=== PATIENT | male | born 1940 | race Caucasian/White ===

== ENCOUNTER 2019-02-11 07:15 | Outpatient (CLI) | payer OTHER ==
[~2019-02-11 07:15] MED LIST: ELIQUIS5 MG; FOLIC ACID0.4 MG; GABAPENTIN600 MG; LIPITOR40 MG; LISINOPRIL-HCT1 EAC1
== END 2019-02-11 07:17 | disposition home or self-care (01) ==
LOC: NUCLEAR 07:15
DX: I48.2 Chronic atrial fibrillation (principal); I20.8 Other forms of angina pectoris
CPT/HCPCS: 78452; 93017; A9500; J0153

== ENCOUNTER 2019-02-13 11:06 | Emergency (ER) | payer OTHER ==
[~2019-02-13] VITALS: Ht 170.2 cm; Wt 80.7 kg
[2019-02-13] MEDS ORDERED: FLECTOR1 EACH TOP (15:36)
== END 2019-02-13 16:18 | disposition home or self-care (01) ==
LOC: ER 11:06
DX: S20.211A Contusion of right front wall of thorax, initial encounter (principal); W18.09XA Striking against other object with subsequent fall, initial encounter; Y93.89 Activity, other specified; Y92.89 Other specified places as the place of occurrence of the external cause; Y99.8 Other external cause status

== ENCOUNTER 2019-06-05 10:02 | Outpatient (CLI) | payer OTHER ==
[~2019-06-05] VITALS: Ht 152.4 cm; Wt 80.7 kg
[~2019-06-05 10:02] MED LIST changes: +FLECTOR1 EACH TOP
== END 2019-06-05 11:15 | disposition home or self-care (01) ==
LOC: OFIC 805 10:02
DX: J31.0 Chronic rhinitis (principal); H90.3 Sensorineural hearing loss, bilateral

== ENCOUNTER 2019-06-19 08:20 | Outpatient (CLI) | payer OTHER ==
[~2019-06-19] VITALS: Ht 152.4 cm; Wt 79.4 kg
== END 2019-06-19 09:00 | disposition home or self-care (01) ==
LOC: OFIC 805 08:20
DX: H90.3 Sensorineural hearing loss, bilateral (principal); J30.89 Other allergic rhinitis; J31.0 Chronic rhinitis

== ENCOUNTER → 2020-02-16 | Outpatient (CLI) | payer OTHER | END | disposition home or self-care (01) | LOC: OFIC 805 10:42 | PROVIDERS: ATTEND Otolaryngology | DX: J31.0 Chronic rhinitis (principal); J30.89 Other allergic rhinitis; H90.3 Sensorineural hearing loss, bilateral ==

== ENCOUNTER 2020-02-18 14:37 | Outpatient (CLI) | payer OTHER | END 2020-02-18 15:00 | disposition home or self-care (01) | LOC: OFIC 805 14:37 | PROVIDERS: ATTEND Otolaryngology | DX: H73.92 Unspecified disorder of tympanic membrane, left ear (principal); H60.8X2 Other otitis externa, left ear; H90.42 Sensorineural hearing loss, unilateral, left ear, with unrestricted hearing on the contralateral side; H61.22 Impacted cerumen, left ear ==

== ENCOUNTER 2020-02-29 09:37 | Outpatient (CLI) | payer OTHER ==
[2020-02-29] MEDS ORDERED: OFLOXACIN5 ML OTIC (10:17)
[2020-02-29] MEDS ORDERED: CIPRODEX OTIC7.5 ML OT (10:18)
== END 2020-02-29 16:33 | disposition home or self-care (01) ==
LOC: OFIC 805 09:37
PROVIDERS: ATTEND Otolaryngology
DX: H91.8X2 Other specified hearing loss, left ear (principal); H73.892 Other specified disorders of tympanic membrane, left ear; H60.8X2 Other otitis externa, left ear; H61.22 Impacted cerumen, left ear

== ENCOUNTER 2020-03-15 10:10 | Outpatient (CLI) | payer OTHER ==
[~2020-03-15 10:10] MED LIST changes: +CIPRODEX OTIC7.5 ML OT; +OFLOXACIN5 ML OTIC
[2020-03-15] MEDS ORDERED: DYMISTA NASAL S23 GM NASAL (10:22)
[2020-03-15] MEDS ORDERED: PROTONIX40 M1 PO (10:23)
[2020-03-15] MEDS ORDERED: PEPCID AC20 MG PO (10:23)
[2020-03-15] MEDS ORDERED: SINGULAIR10 MG PO (10:23)
== END 2020-03-15 19:26 | disposition home or self-care (01) ==
LOC: OFIC 805 10:10
PROVIDERS: ATTEND Otolaryngology
DX: R09.81 Nasal congestion (principal); K21.9 Gastro-esophageal reflux disease without esophagitis; M50.10 Cervical disc disorder with radiculopathy, unspecified cervical region

== ENCOUNTER → 2020-05-24 | Outpatient (CLI) | payer OTHER ==
[~2020-05-24] MED LIST changes: +DYMISTA NASAL S23 GM NASAL; +PEPCID AC20 MG PO; +PROTONIX40 M1 PO; +SINGULAIR10 MG PO
== END | disposition home or self-care (01) ==
LOC: OFIC 805 10:15
PROVIDERS: ATTEND Otolaryngology
DX: J31.0 Chronic rhinitis (principal); K21.9 Gastro-esophageal reflux disease without esophagitis; R09.81 Nasal congestion

== ENCOUNTER → 2020-08-09 | Outpatient (CLI) | payer OTHER | END | disposition home or self-care (01) | LOC: OFIC 805 09:33 | PROVIDERS: ATTEND Otolaryngology | DX: K21.9 Gastro-esophageal reflux disease without esophagitis (principal); R09.81 Nasal congestion; M25.78 Osteophyte, vertebrae ==

== ENCOUNTER → 2021-02-17 07:42 | Outpatient (CLI) | payer OTHER | END | disposition home or self-care (01) | LOC: NUCLEAR 07:00 | PROVIDERS: ATTEND Internal Medicine Cardiovascular Disease | DX: I11.9 Hypertensive heart disease without heart failure (principal); I20.8 Other forms of angina pectoris; E11.9 Type 2 diabetes mellitus without complications; E78.00 Pure hypercholesterolemia, unspecified | CPT/HCPCS: 78452; 93017; A9500; J0153 ==

== ENCOUNTER 2021-03-29 09:15 | Outpatient (CLI) | payer OTHER | END 2021-03-29 09:21 | disposition home or self-care (01) | LOC: NUCLEAR 09:15 | PROVIDERS: ATTEND Specialist | DX: I73.9 Peripheral vascular disease, unspecified (principal) ==

== ENCOUNTER 2021-03-30 08:44 | Outpatient (CLI) | payer OTHER | END 2021-03-30 08:49 | disposition home or self-care (01) | LOC: NUCLEAR 08:44 | PROVIDERS: ATTEND Specialist | DX: I87.2 Venous insufficiency (chronic) (peripheral) (principal) ==

== ENCOUNTER 2021-06-13 08:15 | Outpatient (CLI) | payer OTHER | END 2021-06-13 14:58 | disposition home or self-care (01) | LOC: WOUND CARE 08:15 | PROVIDERS: ATTEND Specialist | DX: E11.628 Type 2 diabetes mellitus with other skin complications (principal); L97.818 Non-pressure chronic ulcer of other part of right lower leg with other specified severity; R60.0 Localized edema | CPT/HCPCS: 97602; A4554; A4930; A6216; A6219 ==

== ENCOUNTER 2022-01-09 09:01 | Outpatient (CLI) | payer OTHER | END 2022-01-09 14:44 | disposition home or self-care (01) | LOC: WOUND MED 09:01 | PROVIDERS: ATTEND Specialist | DX: L89.512 Pressure ulcer of right ankle, stage 2 (principal) | CPT/HCPCS: 11042; A4930; A6219; A6223; A6251 ==

== ENCOUNTER 2023-03-30 10:28 | Emergency (ER) | payer OTHER ==
[~2023-03-30] VITALS: Ht 167.6 cm; Wt 72.6 kg
== END 2023-03-30 17:30 | disposition home or self-care (01) ==
LOC: ER 10:28
PROVIDERS: Emergency Medicine
DX: M47.812 Spondylosis without myelopathy or radiculopathy, cervical region (principal); R13.10 Dysphagia, unspecified; I48.91 Unspecified atrial fibrillation; I10 Essential (primary) hypertension

== ENCOUNTER 2023-05-28 13:12 | Emergency (ER) | payer OTHER ==
[~2023-05-28] VITALS: Ht 170.2 cm; Wt 69.9 kg
[2023-05-28] MEDS ORDERED: VASOTEC20 M1 PO (13:39)
[2023-05-28] MEDS ORDERED: CARVEDILOL3.125 MG (13:40)
[2023-05-28] MEDS ORDERED: DEMADEX (13:41)
== END 2023-05-28 17:51 | disposition home or self-care (01) ==
LOC: ER 13:12
DX: S22.41XA Multiple fractures of ribs, right side, initial encounter for closed fracture (principal); W18.30XA Fall on same level, unspecified, initial encounter; Y93.89 Activity, other specified; Y92.018 Other place in single-family (private) house as the place of occurrence of the external cause; Y99.9 Unspecified external cause status; I10 Essential (primary) hypertension
CPT/HCPCS: 71110; 94010; 96372; 99284; J1885

== ENCOUNTER 2024-09-01 10:43 | Outpatient (CLI) | payer OTHER ==
[~2024-09-01 10:43] MED LIST changes: +ARICEPT10 MG; +CARVEDILOL3.125 MG; +COZAAR25 MG; +DEMADEX; +MEMANTINE HCL5 MG PO; +VASOTEC20 M1 PO
== END 2024-09-01 10:52 | disposition home or self-care (01) ==
LOC: MRI 10:43
PROVIDERS: ATTEND Neuromusculoskeletal Medicine & OMM
DX: F09 Unspecified mental disorder due to known physiological condition (principal); F03.90 Unspecified dementia, unspecified severity, without behavioral disturbance, psychotic disturbance, mood disturbance, and anxiety
CPT/HCPCS: 70551

== ENCOUNTER 2025-01-12 09:41 | Emergency (ER) | payer OTHER ==
[~2025-01-12] VITALS: Ht 170.2 cm; Wt 75.7 kg
[2025-01-12] MEDS ORDERED: MEMANTINE HCL E21 MG (10:40)
[2025-01-12] MEDS ORDERED: HYDRODIURIL12.5 MG PO (10:40)
[2025-01-12] MEDS ORDERED: CEFTRIAXONE SODIUM 1,000 MG VIAL IM ONE (11:15)
[2025-01-12] MEDS ORDERED: CEFUROXIME500 MG PO (11:16)
[2025-01-12] MEDS ORDERED: PEPCID AC20 MG PO (11:16)
[2025-01-12] MEDS ORDERED: CEFTRIAXONE SODIUM 1,000 MG VIAL ONE (11:21)
[2025-01-12] MEDS ORDERED: LIDOCAINE HCL 1% 10ML VIAL ONE (11:22)
== END 2025-01-12 11:33 | disposition home or self-care (01) ==
LOC: ER 09:41
DX: L02.91 Cutaneous abscess, unspecified (principal); I10 Essential (primary) hypertension
CPT/HCPCS: 96372; 99282; J0696

== ENCOUNTER → 2025-05-05 | Emergency (ER) | payer OTHER ==
[~2025-05-05] VITALS: Ht 170.2 cm; Wt 77.1 kg
[~2025-05-05] MED LIST changes: +CEFTRIAXONE SODIUM 1,000 MG VIAL IM STA; +CEFTRIAXONE SODIUM 1,000 MG VIAL ONE; +CEFUROXIME500 MG PO; +HYDRODIURIL12.5 MG PO; +MEMANTINE HCL E21 MG
== END | disposition home or self-care (01) ==
LOC: ER 11:05
DX: L08.9 Local infection of the skin and subcutaneous tissue, unspecified (principal); T14.8XXA Other injury of unspecified body region, initial encounter
CPT/HCPCS: 96372; 99282; J0696

== ENCOUNTER 2025-05-13 12:13 | Outpatient (CLI) | payer OTHER ==
[~2025-05-13 12:13] MED LIST changes: -CEFTRIAXONE SODIUM 1,000 MG VIAL IM STA; -CEFTRIAXONE SODIUM 1,000 MG VIAL ONE
== END 2025-05-13 12:16 | disposition home or self-care (01) ==
LOC: RAD 12:13
PROVIDERS: ATTEND Internal Medicine Cardiovascular Disease
DX: M19.90 Unspecified osteoarthritis, unspecified site (principal)

== ENCOUNTER 2025-06-18 14:53 | Inpatient (IN) | payer OTHER ==
[~2025-06-18] VITALS: Ht 170.2 cm; Wt 77.1 kg
[2025-06-18] MEDS ORDERED: ENALAPRIL MALEA10 MG PO (15:37)
[2025-06-18] MEDS ORDERED: ATORVASTATIN CA20 MG PO (15:38)
[2025-06-18 17:50] LABS: BASO % 0.5 % (0.1-1.2); EOS # 0.11 (0.04-0.54); EOS % 1.4 % (0.7-7.0); LYMPH # 1.96 (1.18-3.74); LYMPH % 25.0 % (19.3-53.1); MEAN PLATELET VOLUME 9.90 fl (9.4-12.4); MONO # 0.68 (0.24-0.82); MONO % 8.7 % (4.7-12.5); NEUT # 5.03 (1.56-6.13); NEUT % 64.1 % (34.0-71.1); RED CELL DISTRIBUTION WIDTH 12.2 % (11.6-14.4)
[2025-06-18 17:54] LABS: ERYTHROCYTE SEDIMENTATION RATE 56 mm/hr (0-20)
[2025-06-18 18:03] LABS: URINE APPEARANCE Clear; URINE BILIRRUBIN Negative (NEGATIVE); URINE BLOOD Negative; URINE COLOR Yellow; URINE GLUCOSE Negative (NEGATIVE); URINE KETONE Negative (NEGATIVE); URINE LEUKOCYTE Negative; URINE NITRATE Negative; URINE PROTEIN Negative (NEGATIVE); URINE UROBILINOGEN 1.0 E.U./dl
[2025-06-18 18:07] LABS: URINE RBC 16.8 uL (0.0-20.8); URINE WBC 7.8 uL (0.0-23.2)
[2025-06-18 18:19] LABS: URINE BACTERIA 1.1 uL (0.0-1933); URINE CAST 0.00 uL (0.0-1.40); URINE EPITHELIAL CELLS 0.6 uL (0.0-38.8)
[2025-06-18 18:39] LABS: INR 1.24
[2025-06-18 19:08] LABS: ALT/SGPT 31.0 U/L (12-78); AST/SGOT 25.0 U/L (15-37); BILIRUBIN TOTAL 2.02 mg/dL (0.3-1.2); BUN CREA RATIO 20.0 (7.0-25.0); CREATININE SERUM 0.86 mg/dL (0.70-1.30); GFR 85.14; GLOBULINA 4.3 G/DL (2.4-3.5); GLUCOSE FASTING 162.0 mg/dL (65-100); OSMOLALITY SERUM 284.0 MOSM/KG (275-295)
[2025-06-18] MEDS ORDERED: VANCOMYCIN HCL 1,000 MG VIAL IV ONE (19:30)
[2025-06-18] MEDS ORDERED: FAMOTIDINE/PF 20 MG/2 ML VIAL IV ONE (19:30)
[2025-06-18] MEDS ORDERED: PIPERACILLIN/TAZOBACTAM SODIUM 3.375 GM in 0.9 % SODIUM CHLORIDE 100 ML IV SCH (20:13)
[2025-06-18] MEDS ORDERED: ONDANSETRON HCL 4 MG in 0.9 % SODIUM CHLORIDE 50 ML IV PRN (20:15)
[2025-06-18] MEDS ORDERED: ACETAMINOPHEN 325 MG TABLET PO PRN (20:15)
[2025-06-18] MEDS ORDERED: 0.9 % SODIUM CHLORIDE 1,000 ML IV SCH (20:15)
[2025-06-18] MEDS ORDERED: APIXABAN 5 MG TABLET PO SCH (20:16)
[2025-06-18] MEDS ORDERED: ENALAPRIL MALEATE 10 MG TABLET PO SCH (20:17)
[2025-06-18] MEDS ORDERED: ATORVASTATIN CALCIUM 20 MG TABLET PO SCH (20:17)
[2025-06-18] MEDS ORDERED: CARVEDILOL 3.125 MG TABLET PO SCH (20:17)
[2025-06-18] MEDS ORDERED: MEMANTINE HCL 10 MG TABLET PO SCH (20:19)
[2025-06-18] MEDS ORDERED: DONEPEZIL HCL 10 MG TABLET PO SCH (20:20)
[2025-06-18] MEDS ORDERED: FAMOTIDINE/PF 20 MG in 0.9 % SODIUM CHLORIDE 8 ML IV PUSH SCH (21:00)
[2025-06-19 03:10] VITALS: BP 134/73; O2SAT 97
[2025-06-19] MEDS ORDERED: LACTOBACILLUS ACIDOPHILUS 1 CAP CAP PO SCH (09:00)
[2025-06-19] MEDS ORDERED: AMINO ACIDS 1 EACH TABLET PO SCH (09:00)
[2025-06-19 09:34] VITALS: BP 109/69; O2SAT 96
[2025-06-19] MEDS ORDERED: SODIUM HYPOCHLORITE 1OZ TOP SCH (11:37)
[2025-06-19] MEDS ORDERED: VANCOMYCIN HCL 1,000 MG VIAL IV SCH (17:07)
[2025-06-19 17:46] VITALS: BP 131/83; O2SAT 96
[2025-06-19] MEDS ORDERED: CLONAZEPAM 0.5 MG TABLET PO SCH (21:00)
[2025-06-20 02:12] VITALS: BP 126/81; O2SAT 97
[2025-06-20 10:00] VITALS: BP 148/86; O2SAT 99
[2025-06-20] MEDS ORDERED: QUETIAPINE FUMARATE 25 MG TABLET PO SCH (17:07)
[2025-06-20 17:10] VITALS: BP 135/81; O2SAT 97
[2025-06-20] MEDS ORDERED: CEFEPIME HCL 2,000 MG VIAL IV SCH (21:00)
[2025-06-21 03:33] VITALS: BP 158/100; O2SAT 95
[2025-06-21 06:17] LABS: BASO % 0.5 % (0.1-1.2); EOS # 0.07 (0.04-0.54); EOS % 0.8 % (0.7-7.0); LYMPH # 1.39 (1.18-3.74); LYMPH % 15.7 % (19.3-53.1); MEAN PLATELET VOLUME 11.30 fl (9.4-12.4); MONO # 0.56 (0.24-0.82); MONO % 6.3 % (4.7-12.5); NEUT # 6.78 (1.56-6.13); NEUT % 76.5 % (34.0-71.1); RED CELL DISTRIBUTION WIDTH 11.9 % (11.6-14.4)
[2025-06-21 06:50] LABS: ALT/SGPT 27.0 U/L (12-78); AST/SGOT 25.0 U/L (15-37); BILIRUBIN TOTAL 1.74 mg/dL (0.3-1.2); BUN CREA RATIO 23.0 (7.0-25.0); CREATININE SERUM 0.8 mg/dL (0.70-1.30); GFR 92.55; GLOBULINA 3.8 G/DL (2.4-3.5); GLUCOSE FASTING 126.0 mg/dL (65-100); OSMOLALITY SERUM 287.0 MOSM/KG (275-295)
[2025-06-21 09:10] VITALS: BP 160/96; O2SAT 95
[2025-06-21] MEDS ORDERED: CIPROFLOXACIN IN 5 % DEXTROSE 400 MG/200 ML PIGGYBAG IV SCH (13:00)
== END 2025-06-21 16:22 | disposition home or self-care (01) | DRG 580 ==
LOC: ER 14:54 → MEDI 21:32 → MEDJ 22:56 → MEDI 06-19 07:40
PROVIDERS: Emergency Medicine; General Practice; Internal Medicine Infectious Disease; ADMIT Internal Medicine; ATTEND Internal Medicine
PROC: 0JBP3ZZ Excision of Left Lower Leg Subcutaneous Tissue and Fascia, Percutaneous Approach (ICD-10-PCS; principal; 2025-06-19)
DX: L97.828 Non-pressure chronic ulcer of other part of left lower leg with other specified severity (principal); L03.116 Cellulitis of left lower limb; L08.89 Other specified local infections of the skin and subcutaneous tissue; I10 Essential (primary) hypertension; G30.9 Alzheimer's disease, unspecified; F02.80 Dementia in other diseases classified elsewhere, unspecified severity, without behavioral disturbance, psychotic disturbance, mood disturbance, and anxiety; B95.2 Enterococcus as the cause of diseases classified elsewhere; B96.5 Pseudomonas (aeruginosa) (mallei) (pseudomallei) as the cause of diseases classified elsewhere